=== PATIENT | male | born 1960 | race Caucasian/White ===

== ENCOUNTER 2016-10-26 08:40 | Emergency (ER) | payer BC ==
[~2016-10-26] VITALS: Ht 193 cm; Wt 140.9 kg
[~2016-10-26 08:40] MED LIST: AMLOPIDINE; AMLOPIDINE PO; ATIVAN 1MG T1 MG/TAB PO; BENICAR; BENICAR 20MG TA20 MG PO; CATAPRES 0.1MG0.1 MG PO; CATAPRES PO; CEPHALEXIN500 M1 PO; CYMBALTA 30MG30 MG PO; CYMBALTA PO; ESCITALOPRAM; FENTANYL 75MCG TOP; FENTANYL75 MCG/HR TD; FLEXERIL 1010 MG/TAB PO; FLEXERIL10 MG PO; FLOMAX 0.40.4 MG/CAP PO; HYDROXYZINE PAM25 MG PO; HYGROTON 2525 MG/TAB PO; LASIX 20MG TABL20 MG PO; LISINOPRIL PO; LISINOPRIL20 MG PO; LORTAB 5/500 501 TAB PO; METHADONE HC5 MG/TAB PO; MINOXIDIL PO; NAPROSYN PO; NORCO 325 MG-51 TAB PO; NORCO 325 MG-7.1 TAB PO; NORVASC 5MG5 MG/TAB PO; No Medications; PERCOCET 325 MG1 TA2 PO; PERCOCET 5/321 UDTAB PO; PERCOCET 650 MG1 TAB PO; PHENERGAN 25 TA25 MG PO; PREDNISONE20 MG PO; PREGABALIN PO; SILVADENE 400G400 GM TP; TRANDATE 100MG100 MG PO; TRANDATE 200MG200 MG PO; ZESTRIL 10MG10 MG PO
[2016-10-26 08:43] VITALS: TEMP 98.1
[2016-10-26] MEDS ORDERED: ZESTRIL 10MG10 MG PO (10:41)
[2016-10-26] MEDS ORDERED: HYGROTON 2525 MG/TAB PO (10:41)
[2016-10-26] MEDS ORDERED: PERCOCET 325 MG1 TA2 PO (10:41)
[2016-10-26 11:48] VITALS: BP 177/126; PULSE 80
== END 2016-10-26 11:48 | disposition home or self-care (01) ==
LOC: COL.ER 08:40
DX: M54.5 Low back pain (principal); M54.16 Radiculopathy, lumbar region; I10 Essential (primary) hypertension; T46.4X6A Underdosing of angiotensin-converting-enzyme inhibitors, initial encounter; Z91.128 Patient's intentional underdosing of medication regimen for other reason
CPT/HCPCS: J1170; J3010

== ENCOUNTER 2017-06-22 10:36 | Inpatient (IN) | payer BC ==
[2017-06-22] VITALS (461 sets, daily range): BP systolic 130–179; BP diastolic 65–112; PULSE 68–103; TEMP 97.7–97.8; O2SAT 78–97
[~2017-06-22] VITALS: Ht 193 cm; Wt 129.7 kg
[2017-06-22 11:27] LABS: BASO % 0.5 % (0.0-2.0); EOS # 0.2 (0.0-0.7); EOS % 1.8 % (0-4.0); GRAN # 6.1 (1.4-6.5); GRAN % 71.9 % (42.2-75.2); HEMATOCRIT 44.8 % (42.0-52.0); HEMOGLOBIN 15.4 g/dl (13.5-18.0); LYMPH # 1.7 (1.2-3.4); LYMPH % 20.3 % (20.0-51.0); MEAN CELL VOLUME 94 fl (80.0-100.0); MEAN CORPUSCULAR HEMOGLOBIN 32 pg (27.0-31.0); MEAN CORPUSCULAR HGB CONC 34 g/dl (33.0-37.0); MEAN PLATELET VOLUME 10.6 fl (7.4-10.4); MONO # 0.4 (0.1-0.6); PLATELET COUNT 232 K/mm3 (130-400); RED BLOOD COUNT 4.75 M/mm3 (4.20-5.60); WHITE BLOOD COUNT 8.5 K/mm3 (4.8-10.8)
[2017-06-22 11:55] LABS: ALANINE AMINOTRANSFERASE 39 U/L (21-72); ALBUMIN 4.9 gm/dL (3.5-5.0); ALKALINE PHOSPHATASE 140 U/L (50-136); ANION GAP 13 mmol/L (7-16); BILIRUBIN,TOTAL 0.8 mg/dL (0.0-1.0); BLOOD UREA NITROGEN 15 mg/dL (9-20); CALCIUM 9.7 mg/dL (8.4-10.2); CARBON DIOXIDE 21 mmol/L (22-30); CHLORIDE 107 mmol/L (98-107); CREATININE, serum 1.16 mg/dL (0.66-1.25); GLUCOSE 106 mg/dL (74-106); POTASSIUM 4.1 mmol/L (3.4-5.0); SODIUM 140 mmol/L (137-145); TOTAL PROTEIN 7.9 gm/dL (6.4-8.2)
[2017-06-22 12:03] LABS: C-REACTIVE PROTEIN < 0.5 mg/dL (0.0-0.9)
[2017-06-22] MEDS ORDERED: ZESTRIL 10MG10 MG PO (15:26)
[2017-06-23] VITALS (730 sets, daily range): BP systolic 125–198; BP diastolic 73–109; PULSE 60–79; TEMP 97.5–98.5; O2SAT 70–100
[2017-06-23 05:39] LABS: BASO % 0.5 % (0.0-2.0); EOS # 0.2 (0.0-0.7); EOS % 2.2 % (0-4.0); GRAN # 5.6 (1.4-6.5); GRAN % 65.8 % (42.2-75.2); HEMATOCRIT 42.2 % (42.0-52.0); HEMOGLOBIN 14.1 g/dl (13.5-18.0); MEAN CELL VOLUME 98 fl (80.0-100.0); MEAN CORPUSCULAR HEMOGLOBIN 33 pg (27.0-31.0); MEAN CORPUSCULAR HGB CONC 33 g/dl (33.0-37.0); MEAN PLATELET VOLUME 10.4 fl (7.4-10.4); MONO # 0.6 (0.1-0.6); MONO % 7.1 % (1.7-9.3); PLATELET COUNT 198 K/mm3 (130-400); RED BLOOD COUNT 4.33 M/mm3 (4.20-5.60); WHITE BLOOD COUNT 8.5 K/mm3 (4.8-10.8)
[2017-06-23 06:05] LABS: CALCIUM 8.8 mg/dL (8.4-10.2); CREATININE, serum 0.98 mg/dL (0.66-1.25); POTASSIUM 3.9 mmol/L (3.4-5.0)
[2017-06-23] MEDS ORDERED: PROZAC40 MG PO (11:38)
[2017-06-24] VITALS (266 sets, daily range): BP systolic 149–179; BP diastolic 88–95; PULSE 59–79; TEMP 97.8–98.8; O2SAT 77–99
[2017-06-24 05:44] LABS: BASO # 0.1 (0.0-0.2); BASO % 0.7 % (0.0-2.0); EOS # 0.2 (0.0-0.7); EOS % 3.1 % (0-4.0); GRAN # 4.2 (1.4-6.5); GRAN % 61.2 % (42.2-75.2); HEMATOCRIT 39.8 % (42.0-52.0); HEMOGLOBIN 13.1 g/dl (13.5-18.0); LYMPH # 1.8 (1.2-3.4); LYMPH % 26.7 % (20.0-51.0); MEAN CELL VOLUME 97 fl (80.0-100.0); MEAN CORPUSCULAR HEMOGLOBIN 32 pg (27.0-31.0); MEAN CORPUSCULAR HGB CONC 33 g/dl (33.0-37.0); MEAN PLATELET VOLUME 10.1 fl (7.4-10.4); MONO # 0.5 (0.1-0.6); MONO % 7.9 % (1.7-9.3); PLATELET COUNT 189 K/mm3 (130-400); RED BLOOD COUNT 4.12 M/mm3 (4.20-5.60); WHITE BLOOD COUNT 6.9 K/mm3 (4.8-10.8)
[2017-06-24 05:58] LABS: CREATININE, serum 0.91 mg/dL (0.66-1.25); POTASSIUM 3.9 mmol/L (3.4-5.0)
[2017-06-24] MEDS ORDERED: NORVASC 10MG10 MG PO (10:21)
[2017-06-24] MEDS ORDERED: APRESOLINE 10MG10 MG PO (10:21)
[2017-06-24] MEDS ORDERED: ASPI325T6 PO (10:22)
[2017-06-24] MEDS ORDERED: ZESTRIL40 MG PO (10:22)
[2017-06-24] MEDS ORDERED: HCTZ12.5TAB PO (10:22)
[2017-06-24] MEDS ORDERED: NORCO 325 MG-51 TAB PO (10:33)
[2017-06-24] MEDS ORDERED: LOPRESSOR100 MG PO (10:35)
== END 2017-06-24 12:00 | disposition home or self-care (01) | DRG 305 ==
LOC: COL.ER 10:36 → ICU 12:04
PROVIDERS: Family Medicine; Physician Assistant
DX: I16.0 Hypertensive urgency (principal); M54.9 Dorsalgia, unspecified; Z86.73 Personal history of transient ischemic attack (TIA), and cerebral infarction without residual deficits
CPT/HCPCS: 99223-AI; 99233-AI; 99239; J1170; J1650; J2405; J7030; J7050

== ENCOUNTER 2017-07-26 07:21 | Inpatient (IN) | payer BC ==
[~2017-07-26] VITALS: Ht 193 cm; Wt 131.0 kg
[2017-07-26] VITALS (568 sets, daily range): BP systolic 150–225; BP diastolic 90–144; PULSE 79–98; TEMP 97.2–97.6; O2SAT 82–100
[~2017-07-26 07:21] MED LIST changes: +APRESOLINE 10MG10 MG PO; +ASPI325T6 PO; +HCTZ12.5TAB PO; +LOPRESSOR100 MG PO; +NORVASC 10MG10 MG PO; +PROZAC40 MG PO; +ZESTRIL40 MG PO
[2017-07-26 08:30] LABS: BASO % 0.6 % (0.0-2.0); EOS # 0.2 (0.0-0.7); EOS % 2.9 % (0-4.0); GRAN # 4.6 (1.4-6.5); HEMATOCRIT 44.4 % (42.0-52.0); HEMOGLOBIN 15.1 g/dl (13.5-18.0); LYMPH # 1.8 (1.2-3.4); LYMPH % 25.5 % (20.0-51.0); MEAN CELL VOLUME 96 fl (80.0-100.0); MEAN CORPUSCULAR HEMOGLOBIN 33 pg (27.0-31.0); MEAN CORPUSCULAR HGB CONC 34 g/dl (33.0-37.0); MEAN PLATELET VOLUME 10.6 fl (7.4-10.4); MONO # 0.5 (0.1-0.6); MONO % 6.7 % (1.7-9.3); PLATELET COUNT 216 K/mm3 (130-400); RED BLOOD COUNT 4.61 M/mm3 (4.20-5.60); REDCELL DISTRIBUTION WIDTH-CV 13.5 % (11.5-14.5)
[2017-07-26 08:34] LABS: ALBUMIN 4.7 gm/dL (3.5-5.0); BILIRUBIN,TOTAL 0.6 mg/dL (0.0-1.0); CALCIUM 9.4 mg/dL (8.4-10.2); CREATININE, serum 1.29 mg/dL (0.66-1.25); MAGNESIUM 2.2 mg/dL (1.6-2.3); POTASSIUM 4.4 mmol/L (3.4-5.0); TOTAL PROTEIN 7.4 gm/dL (6.4-8.2)
[2017-07-26 09:35] LABS: TROPONIN-I 0.069 ng/mL (0.000-0.034)
[2017-07-27] VITALS (181 sets, daily range): BP systolic 142–192; BP diastolic 74–125; PULSE 56–84; TEMP 97–98.6; O2SAT 89–100
[2017-07-27 06:11] LABS: CALCIUM 8.9 mg/dL (8.4-10.2); CHOLESTEROL RISK RATIO 4.5; CREATININE, serum 1.14 mg/dL (0.66-1.25); MAGNESIUM 2.2 mg/dL (1.6-2.3); POTASSIUM 3.9 mmol/L (3.4-5.0)
[2017-07-27 06:24] LABS: TROPONIN-I 0.103 ng/mL (0.000-0.034)
[2017-07-28 02:46] VITALS: BP 138/59; PULSE 56; TEMP 97.8
[2017-07-28 06:08] VITALS: BP 164/77; PULSE 57; TEMP 98
[2017-07-28 07:51] LABS: CALCIUM 9.4 mg/dL (8.4-10.2); CREATININE, serum 1.35 mg/dL (0.66-1.25); MAGNESIUM 2.1 mg/dL (1.6-2.3); POTASSIUM 3.9 mmol/L (3.4-5.0)
[2017-07-28 08:20] LABS: TROPONIN-I 0.098 ng/mL (0.000-0.034)
== END 2017-07-28 11:08 | disposition left against medical advice (07) | DRG 282 ==
LOC: COL.ER 07:21 → ICU 09:22 → SURG 07-27 14:05 → ICU 07-27 14:05 → SURG 07-27 15:00
PROVIDERS: Emergency Medicine; Internal Medicine
DX: I16.0 Hypertensive urgency (principal); I21.A1 Myocardial infarction type 2; M54.5 Low back pain; H53.2 Diplopia; R11.2 Nausea with vomiting, unspecified; Z86.73 Personal history of transient ischemic attack (TIA), and cerebral infarction without residual deficits; Z91.14 Patient's other noncompliance with medication regimen
CPT/HCPCS: 99222-AI; 99233-AI; 99239; J0360; J1170; J1650; J2405; J7050

== ENCOUNTER 2017-08-18 08:22 | Emergency (ER) | payer SELFPAY ==
[~2017-08-18] VITALS: Ht 193 cm; Wt 129.5 kg
[2017-08-18 08:28] VITALS: TEMP 96.8
[2017-08-18 09:02] LABS: BASO % 0.3 % (0.0-2.0); EOS # 0.2 (0.0-0.7); GRAN # 4.7 (1.4-6.5); GRAN % 62.4 % (42.2-75.2); HEMATOCRIT 46.9 % (42.0-52.0); HEMOGLOBIN 16.4 g/dl (13.5-18.0); LYMPH # 1.9 (1.2-3.4); LYMPH % 25.3 % (20.0-51.0); MEAN CELL VOLUME 92 fl (80.0-100.0); MEAN CORPUSCULAR HEMOGLOBIN 32 pg (27.0-31.0); MEAN CORPUSCULAR HGB CONC 35 g/dl (33.0-37.0); MEAN PLATELET VOLUME 10.8 fl (7.4-10.4); MONO # 0.7 (0.1-0.6); MONO % 9.6 % (1.7-9.3); PLATELET COUNT 215 K/mm3 (130-400); RED BLOOD COUNT 5.09 M/mm3 (4.20-5.60); REDCELL DISTRIBUTION WIDTH-CV 12.4 % (11.5-14.5)
[2017-08-18 09:22] LABS: ALBUMIN 5.1 gm/dL (3.5-5.0); BILIRUBIN,TOTAL 1.1 mg/dL (0.0-1.0); CALCIUM 9.9 mg/dL (8.4-10.2); CREATININE, serum 1.59 mg/dL (0.66-1.25); POTASSIUM 4.3 mmol/L (3.4-5.0); TOTAL PROTEIN 8.3 gm/dL (6.4-8.2)
[2017-08-18 11:10] VITALS: BP 160/93; PULSE 88
== END 2017-08-18 11:13 | disposition home or self-care (01) ==
LOC: COL.ER 08:22
PROVIDERS: Emergency Medicine
DX: H53.2 Diplopia (principal); I10 Essential (primary) hypertension; Z79.82 Long term (current) use of aspirin
CPT/HCPCS: J7030

== ENCOUNTER 2017-09-12 06:53 | Inpatient (IN) | payer SELFPAY ==
[~2017-09-12] VITALS: Ht 193 cm; Wt 125.0 kg
[2017-09-12] VITALS (64 sets, daily range): BP systolic 179; BP diastolic 89; PULSE 80; TEMP 98; O2SAT 87–98
[2017-09-12 07:52] LABS: BASO % 0.5 % (0.0-2.0); EOS # 0.2 (0.0-0.7); EOS % 2.7 % (0-4.0); GRAN # 5.3 (1.4-6.5); GRAN % 70.5 % (42.2-75.2); HEMATOCRIT 40.5 % (42.0-52.0); HEMOGLOBIN 13.7 g/dl (13.5-18.0); LYMPH # 1.6 (1.2-3.4); LYMPH % 20.7 % (20.0-51.0); MEAN CELL VOLUME 96 fl (80.0-100.0); MEAN CORPUSCULAR HEMOGLOBIN 33 pg (27.0-31.0); MEAN CORPUSCULAR HGB CONC 34 g/dl (33.0-37.0); MEAN PLATELET VOLUME 10.1 fl (7.4-10.4); MONO # 0.4 (0.1-0.6); MONO % 5.2 % (1.7-9.3); PLATELET COUNT 257 K/mm3 (130-400); REDCELL DISTRIBUTION WIDTH-CV 14.4 % (11.5-14.5)
[2017-09-12 08:17] LABS: ALCOHOL(ethanol),MEDICAL < 10 mg/dL; MAGNESIUM 1.9 mg/dL (1.6-2.3); PHOSPHOROUS 4.1 mg/dL (2.5-4.5)
[2017-09-12 08:18] LABS: BILIRUBIN,TOTAL 0.5 mg/dL (0.0-1.0); CALCIUM 9.3 mg/dL (8.4-10.2); CREATININE, serum 1.29 mg/dL (0.66-1.25); POTASSIUM 4.5 mmol/L (3.4-5.0); TOTAL PROTEIN 6.9 gm/dL (6.4-8.2)
[2017-09-12 08:29] LABS: TROPONIN-I 0.031 ng/mL (0.000-0.034)
[2017-09-12 14:08] LABS: ARTERIAL BLD GAS O2 SATURATION 99.4 % (92-100); ARTERIAL BLD GAS TCO2 CT 23.2; ARTERIAL BLOOD GAS BASE EXCESS -4.1 (-2-2); ARTERIAL BLOOD GAS HCO3 21.9 meq/L (22-26); ARTERIAL BLOOD GAS PCO2 43.5 mmHg (35-45); ARTERIAL BLOOD GAS pH 7.32 (7.35-7.45)
[2017-09-12 14:09] LABS: ARTERIAL BLOOD GAS PO2 357.8 mmHg (80-100)
== END 2017-09-12 15:24 | disposition short-term general hospital (02) | DRG 64 ==
LOC: COL.ER 06:53 → ICU 09:57
PROVIDERS: Emergency Medicine; Internal Medicine Pulmonary Disease
PROC: 0BH18EZ Insertion of Endotracheal Airway into Trachea, Via Natural or Artificial Opening Endoscopic (ICD-10-PCS; principal; 2017-09-12)
PROC: 5A1935Z Respiratory Ventilation, Less than 24 Consecutive Hours (ICD-10-PCS; 2017-09-12)
DX: I63.211 Cerebral infarction due to unspecified occlusion or stenosis of right vertebral artery (principal); J69.0 Pneumonitis due to inhalation of food and vomit; J96.01 Acute respiratory failure with hypoxia; E87.2 Acidosis; R29.810 Facial weakness; Z66 Do not resuscitate; R47.81 Slurred speech; I63.22 Cerebral infarction due to unspecified occlusion or stenosis of basilar artery; I16.0 Hypertensive urgency; I10 Essential (primary) hypertension; Z91.14 Patient's other noncompliance with medication regimen; G89.29 Other chronic pain; R29.710 NIHSS score 10
CPT/HCPCS: C1751; J0330; J0360; J2405; J2543; J2550; J2704; J3010; J7050